=== PATIENT | male | born 1995 | race Caucasian/White ===

== ENCOUNTER 2019-04-24 20:43 | Emergency (ER) | payer MEDICAID ==
[~2019-04-24] VITALS: Ht 177.8 cm; Wt 81.2 kg
[2019-04-24 20:50] VITALS: BP_SYST 123
[2019-04-25] MEDS ORDERED: AMOXICILLIN 500 MG CAPSULE PO ONE
[2019-04-25 00:14] VITALS: BP_SYST 123
== END 2019-04-25 00:14 | disposition home or self-care (01) ==
LOC: SED 20:43
DX: J02.9 Acute pharyngitis, unspecified (principal)
CPT/HCPCS: 36415; 86403; 87081; 93005; 99284